=== PATIENT | male | born 1970 | race American Indian/Alaskan Native ===

== ENCOUNTER 2019-12-21 10:20 | Emergency (ER) | payer MEDICAID ==
[2019-12-21 10:48] VITALS: BP 131/77
--- NOTE | 2019-12-21 10:59 | Emergency Department Report ---
ED General Adult HPI - General Chief complaint: Psych Stated complaint: BEHAVIORAL PUI?: No Time Seen by Provider: 12/21/19 10:53 Source: patient, EMS ( EMS documentation not available at time of chart dictation ), RN notes reviewed Mode of arrival: Ambulatory Limitations: Other (Patient is somewhat disorganized, and a poor historian) - History of Present Illness Initial comments: The patient is a 49-year-old gentleman with a history of psychiatric disease. He was apparently scheduled to go to his outpatient psychiatric facility for a routine maintenance injection, and apparently became somewhat combative, and declines/refuses medication injection. He was thus sent to the emergency room. In the emergency room, the patient has no complaints. He specifically denies headache, neck pain, chest pain, abdominal pain, vijay rtness of breath, urinary symptoms, homicidality and suicidality. At the moment, he is not accompanied by friends or family at this time for additional information or collateral information. -: This morning Improves with: none Worsens with: none Associated Symptoms: denies other symptoms - Related Data Home Medications Medication Instructions Recorded Confirmed Last Taken carBAMazepine [Carbamazepine ER] 400 mg PO HS 12/21/19 12/21/19 Unknown clonazePAM 1 mg PO HS 12/21/19 12/21/19 Unknown metFORMIN [Glucophage] 500 mg PO BID 12/21/19 12/21/19 Unknown propranoloL [Inderal] 10 mg PO HS 12/21/19 12/21/19 Unknown Allergies Allergy/AdvReac Type Severity Reaction Status Date / Time No Known Allergies Allergy Unverified 12/21/19 10:28 ED Review of Systems ROS: Stated complaint: BEHAVIORAL Other details as noted in HPI Comment: All other systems reviewed and negative ED Past Medical Hx - Past Medical History Hx Hypertension: Yes Hx Psychiatric Treatment: Yes (schizo) - Social History Smoking Status: Current Every Day Smoker Substance Use Type: Cocaine, Marijuana - Medications Home Medications: Home Medications Medication Instructions Recorded Confirmed Last Taken Type carBAMazepine [Carbamazepine ER] 400 mg PO HS 12/21/19 12/21/19 Unknown History clonazePAM 1 mg PO HS 12/21/19 12/21/19 Unknown History metFORMIN [Glucophage] 500 mg PO BID 12/21/19 12/21/19 Unknown History propranoloL [Inderal] 10 mg PO HS 12/21/19 12/21/19 Unknown History ED Physical Exam - General Limitations: Other (Patient is somewhat disorganized and a relatively poor historian) General appearance: alert, in no apparent distress - Head Head exam: Present: atraumatic, normocephalic - Eye Eye exam: Present: normal appearance, EOMI. Absent: nystagmus - ENT ENT exam: Present: normal exam, normal orophraynx, mucous membranes moist, normal external ear exam - Neck Neck exam: Present: normal inspection, full ROM. Absent: tenderness, meningismus - Respiratory Respiratory exam: Present: normal lung sounds bilaterally. Absent: respiratory distress - Cardiovascular Cardiovascular Exam: Present: regular rate, normal rhythm, normal heart sounds. Absent: bradycardia, tachycardia, irregular rhythm, systolic murmur, diastolic murmur, rubs, gallop - GI/Abdominal GI/Abdominal exam: Present: soft, normal bowel sounds. Absent: distended, tenderness, guarding, rebound, rigid, pulsatile mass - Rectal Rectal exam: Present: deferred - Extremities Exam Extremities exam: Present: normal inspection, full ROM, other (2+ pulses noted in the bilateral upper and lower extremities. There is no palpable cord. negative Homans sign. Muscular compartments are soft. The pelvis is stable.). Absent: pedal edema, calf tenderness - Back Exam Back exam: Present: normal inspection, full ROM. Absent: tenderness, CVA tenderness (R), CVA tenderness (L), muscle spasm, paraspinal tenderness, vertebral tenderness - Neurological Exam Neurological exam: Present: alert (Alert to name and location), other (No facial droop. Tongue midline. Extraocular movements intact bilaterally. Facial sensation intact to light touch in V1, V2, V3 distribution bilaterally. 5 and a 5 strength in 4 extremities. Sensation intact to light touch in 4 extremities.) - Psychiatric Psychiatric exam: Present: flat affect. Absent: homicidal ideation, suicidal ideation - Skin Skin exam: Present: warm, dry, intact, normal color. Absent: rash ED Course Vital Signs 12/21/19 10:30 Temperature 98.2 F Pulse Rate 92 H Respiratory 18 Rate Blood Pressure 131/77 O2 Sat by Pulse 100 Oximetry - Reevaluation(s) Reevaluation #1: 12/21/19 11:45 Differential diagnosis, including but not limited to: Disorganized behavior, schizoaffective, schizophrenia, medical clearance Assessment and plan: 49-year-old gentleman who at the moment is pleasant, calm and cooperative, not aggressive, combative or belligerent, not homicidal or suicidal, with no acute medical complaints at this time. He does not meet criteria for 1013 at this time. He has had no endorsement of any acute medical complaints. There is no collateral information to suggest an acute medical emergency at this time. Psychiatric consultation is requested. Appropriate screening laboratory studies have been ordered. However, we do not suspect overdose at this time Reevaluation #2: 12/21/19 15:13 Patient walking around with a steady gait, and in no acute distress. Laboratory studies are reviewed and appreciated. Elevated CK should decrease on its own with oral hydration. It does not meet the definition for rhabdomyolysis. He is seen by psychiatry, and they agree that he does not meet criteria for 1013 or involuntary hold. The patient does not appear to have an emergent medical condition at this time. He does not appear to have an emergent psychiatric condition at this time. ED Medical Decision Making - Lab Data Result diagrams: 12/21/19 11:38 Vital Signs 12/21/19 10:30 Temperature 98.2 F Pulse Rate 92 H Respiratory 18 Rate Blood Pressure 131/77 O2 Sat by Pulse 100 Oximetry Critical care attestation.: If time is entered above; I have spent that time in minutes in the direct care of this critically ill patient, excluding procedure time. ED Disposition Clinical Impression: General medical exam Disposition: [id number] TO HOME OR SELFCARE Is pt being admited?: No Does the pt Need Aspirin: No Condition: Stable Additional Instructions: Please drink 4 to 6 cups of water per day for the foreseeable future/indefinitely. Please follow-up with your outpatient primary care doctor or psychiatrist within the next 2 weeks. Please return to the emergency room right away with new pain, worsening pain, migration of pain, fevers, chills, lethargy, irritability, projectile vomiting, change in mental status, confusion, inability to tolerate liquid feeds, new, worsened or different symptoms not present on the initial emergency room evaluation Referrals: NHUNG KNIGHT MD [Primary Care Provider] - 3-5 Days [facility] [Provider Group] - 3-5 Days [facility] [Outside] - 3-5 Days
[2019-12-21 12:07] LABS: Bilirubin,Urine NEG (Negative); Blood,Urine NEG (Negative); Color,Urine Yellow (Yellow); Mucus,Urine FEW /HPF; Protein,Urine <15 mg/dL mg/dL (Negative); Urobilinogen,Urine < 2.0 mg/dL (<2.0)
[2019-12-21 12:27] LABS: Amphetamine Screen,Urine PRESUMPTIVE NEGATIVE; Cannabinoid Screen,Urine PRESUMPTIVE NEGATIVE; Cocaine Screen,Urine PRESUMPTIVE NEGATIVE; Methadone Screen,Urine PRESUMPTIVE NEGATIVE; Opiate Screen,Urine PRESUMPTIVE NEGATIVE
[2019-12-21 12:28] LABS: BUN/Creatinine Ratio 13; Blood Urea Nitrogen 12 mg/dL (9-20); Calcium 8.5 mg/dL (8.4-10.2); Hemolysis Index 6
[2019-12-21 12:47] LABS: Benzodiazepines Screen,Urine PRESUMPTIVE POSITIVE
== END 2019-12-21 18:30 | disposition home or self-care (01) ==
LOC: ED 10:20
DX: F20.9 Schizophrenia, unspecified (principal); I10 Essential (primary) hypertension; F12.10 Cannabis abuse, uncomplicated; F17.200 Nicotine dependence, unspecified, uncomplicated; F14.10 Cocaine abuse, uncomplicated; Z79.899 Other long term (current) drug therapy
CPT/HCPCS: 36415; 80048; 80164; 80307; 80320; 81001; 82550; 83735; G0480